=== PATIENT | male | born 1930 | race Two or more races ===

== ENCOUNTER 2018-08-20 14:47 | Emergency (ER) | payer OTHER, BC ==
[2018-08-20 15:14] VITALS: BP 102/58; PULSE 84; TEMP 97.8; BMI 19.9
[2018-08-20 16:34] LABS: PH,URINE 6.5 (5.0-8.0); URINE APPEARANCE CLEAR; URINE BILIRUBIN NEGATIVE (<2.0 mg/dL); URINE COLOR YELLOW; URINE GLUCOSE (UA) NEGATIVE (NEGATIVE); URINE KETONE NEGATIVE (NEGATIVE); URINE LEUK ESTERASE NEGATIVE (NEGATIVE); URINE NITRITE NEGATIVE (NEGATIVE); URINE PROTEIN NEGATIVE (NEGATIVE); URINE UROBILINOGEN 0.2 mg/dL (0.2-1.0)
--- NOTE | 2018-08-20 16:51 | PDOC ---
History of Present Illness - General Chief Complaint: Weakness Stated Complaint: FALL Time Seen by Provider: 08/20/18 15:45 History Source: Patient Exam Limitations: No Limitations - History of Present Illness Initial Comments: 08/20/18 16:47 88 yo male pmh of CAD, s/p CABG, HTN, HLD, anxiety, panic attacks and unspecified dementia presents to the ED from [address] [place] [address] after an unwitnessed fall 1 day ago with bilateral knee pain, bilateral lower leg weakness, left hip pain. Pt states while at his sons house yesterday, he fell after walking down the steps with 2 steps left, landed on his knees and believes he hit his head. Denies LOC, [place], N/V, changes in vision, changes in sensation or weakness on 1 side of his body. Pt states over the last 2 days it has become more difficult for him to ambulate due to pain in his knees and unsteady gait with dizziness. present who helps clarify pt hx, chronic complaints of dizziness, difficulty swallowing. Pts dementia is a limiting factor in the HPI, continues to state pt is at baseline and only new complaint is knee pain. Pt denies F/C, CP, SOB, back pain or changes in bowel or bladder habits Past History - Past Medical History Allergies/Adverse Reactions: Allergies Allergy/AdvReac Type Severity Reaction Status Date / Time No Known Allergies Allergy Verified 08/20/18 15:11 Home Medications: Ambulatory Orders Atorvastatin Ca [Lipitor] 40 mg PO DAILY 12/20/17 Clopidogrel Bisulfate [Plavix -] 75 mg PO DAILY 12/20/17 Finasteride [Proscar -] 5 mg PO DAILY 12/20/17 Tamsulosin HCl [Flomax] 0.4 mg PO DAILY 12/20/17 Alprazolam [Xanax] 0.25 mg PO DAILY 08/20/18 Alprazolam [Xanax] 0.5 mg PO DAILY 08/20/18 Buspirone HCl [Buspar -] 15 mg PO BID 08/20/18 Lubiprostone [Amitiza] 24 mcg PO DAILY 08/20/18 Mirtazapine 7.5 mg PO DAILY 08/20/18 Cardiac Disorders: Yes COPD: Yes Psychiatric Problems: Yes (anxiety) - Surgical History Cardiac Surgery: Yes (bipass 03/15) Lung Surgery: (lobectemy) - Suicide/Smoking/Psychosocial Hx Smoking History: Former smoker Have you smoked in the past 12 months: No Information on smoking cessation initiated: No Hx Alcohol Use: No Drug/Substance Use Hx: No Review of Systems - Review of Systems Constitutional: Yes: Weakness (bilateral lower limb). No: Chills, Fever HEENTM: No: Blurred Vision, Double Vision Respiratory: No: Cough, Shortness of Breath, Wheezing Cardiac (ROS): No: Chest Pain, Edema, Lightheadedness, Palpitations ABD/GI: No: Constipated, Diarrhea, Nausea, Vomiting : No: Burning, Dysuria, Frequency, Flank Pain Musculoskeletal: No: Back Pain, Neck Pain Integumentary: Yes: Bruising (bilateral knee) Neurological: Yes: Weakness (bilateral lower limb). No: Headache, Numbness, Tingling *Physical Exam - Vital Signs Last Vital Signs Temp Pulse Resp BP Pulse Ox 97.8 F 84 18 102/58 L 95 08/20/18 15:11 08/20/18 15:11 08/20/18 15:11 08/20/18 15:11 08/20/18 15:11 - Physical Exam General Appearance: Yes: Nourished, Appropriately Dressed. No: Apparent Distress HEENT: positive: EOMI, JUNIOR, Normal ENT Inspection, Normal Voice, Hearing Grossly Normal Neck: positive: Trachea midline, Supple, Tender midline. negative: Carotid bruit, Decreased range of motion, Tender lateral Respiratory/Chest: positive: Lungs Clear, Normal Breath Sounds. negative: Chest Tender, Respiratory Distress, Accessory Muscle Use, Rapid RR, Paradoxal Breathing, Crackles, Rales, Rhonchi, Stridor, Wheezing Cardiovascular: positive: Regular Rhythm, Regular Rate, S1, S2. negative: Edema , JVD, Murmur Vascular Pulses: Dorsalis-Pedis (R): 4+, Doralis-Pedis (L): 4+ Gastrointestinal/Abdominal: positive: Normal Bowel Sounds, Flat, Soft. negative : Pulsatile Mass, Distended, Guarding, Rebound, Tenderness Musculoskeletal: negative: CVA Tenderness, Decreased Range of Motion Extremity: positive: Normal Capillary Refill, Normal Inspection, Normal Range of Motion, Pelvis Stable, Other (pulses, sensation and strength normal bilateral lower limb, pt ambulating). negative: Coldness, Cyanosis, Delayed Capillary Refill, Calf Tenderness Integumentary: positive: Normal Color, Dry, Warm, Bruising (bilateral patellar without pain on palpation. ), Other (Normal ROM bilateral knee flexion and extension) Neurologic: positive: pelt salter II-XII NML intact, Fully Oriented, Alert, Normal Mood/ Affect, Normal Response, Motor Strength 5/5. negative: Facial Droop, Numbness, Sensory Deficit, Finger to Nose (normal), Confused (baseline mentation), Disoriented Moderate Sedation - Procedure Monitoring Vital Signs: Procedure Monitoring Vital Signs Temperature 97.8 F 08/20/18 15:11 Pulse Rate 84 08/20/18 15:11 Respiratory Rate 18 08/20/18 15:11 Blood Pressure 102/58 L 08/20/18 15:11 O2 Sat by Pulse Oximetry (%) 95 08/20/18 15:11 ED Treatment Course - LABORATORY CBC & Chemistry Diagram: 08/20/18 18:30 08/20/18 18:30 - ADDITIONAL ORDERS Additional order review: Laboratory Results 08/20/18 16:29 Urine Color Yellow Urine Appearance Clear Urine pH 6.5 Ur Specific [place] 1.013 Urine Protein Negative Urine Glucose (UA) Negative Urine Ketones Negative Urine Blood Negative Urine Nitrite Negative Urine Bilirubin Negative Urine Urobilinogen 0.2 Ur Leukocyte Esterase Negative - RADIOLOGY Radiology Studies Ordered: Category Date Time Status HEAD CT WITHOUT CONTRAST [CT] Stat CT Scan 08/20/18 16:03 Ordered CHEST X-RAY PORTABLE* [RAD] Stat Radiology 08/20/18 16:39 Ordered KNEE 3 POS-LEFT [RAD] Stat Radiology 08/20/18 16:03 Ordered KNEE 3 POS-RIGHT [RAD] Stat Radiology 08/20/18 16:03 Ordered Medical Decision Making - Medical Decision Making 08/20/18 18:48 88 yo male presents to the ED 1 day after unwitnessed fall, generalized bilateral lower limb weakness, left hip pain and likely hit head. Not on AC. Pt has non concerning neuro exam. NAD, non toxic appearing, AOX3, resting comfortably and ambulates without difficulty in the ED Vitals stable Pt has bilateral knee pain with erythema visible however pt able to ambulate, no tenderness with palpation and pulses/strength/sensation equal and normal bilateral lower ext Basic labs to r/o electrolyte/infections etiology of weakness EKG to r/o arrhythmia Head CT negative for acute intracranial path Pelvis CT negative for fracture however shows osteoporosis and a possible prostatic mass vs bladder polyp. Printed report and told to follow up with PCP for further concerns/work up Bilateral knee x ray negative for acute pathology Labs WNL and non concerning. Trops negative. UA negative for infection EKS NSR without ST changes Pt and very adamant about leaving before it gets dark outside and state they will s/o ama if they have to wait or if it is determined pt needs to be admitted. Pt is at baseline mentation and able to perform ADLs just as well as he did prior to his fall according to both him and his Work up negative for acute cause of fall or significant injuries due to the fall Pt DC back to [facility] with PCP f/u and print outs of x rays/ct scans Pt and understand and agree with plan *DC/Admit/Observation/Transfer Diagnosis at time of Disposition: Fall, Bilateral knee pain - Discharge Dispostion Disposition: INTERMEDIATE FACILITY Condition at time of disposition: Stable Decision to Admit order: No - Referrals Referrals: Cathy Rodríguez MD [Primary Care Provider] - - Patient Instructions Printed Discharge Instructions: DI for Knee Pain, DI for Dizziness-Nonvertigo Additional Instructions: Please see your primary doctor within the next 24 hours. Return to the ER for new or concerning symptoms including but not limited to: chest pain, shortness of breath, headaches, changes in vision or speech, weakness or changes in sensation on 1 side of your body, high fevers or inability to eat or drink. Continue taking your home dosed medications as prescribed. Thank you - Post Discharge Activity
--- NOTE | 2018-08-20 17:44 | PDOC ---
Attending Attestation - HPI HPI: 08/20/18 17:49 The patient is an 88-year-old male with a past medical history significant for HTN, HLD, CAD s/p CABG, left lower lobe lobectomy, panic attacks, anxiety, and undiagnosed dementia presents to the emergency department from [address] [place] [address] assisted living with bilateral lower leg weakness. The patient reports he suffered an unwitnessed fall yesterday, reports he sustained an injury to his knees and reports hitting his head. The patient reports [facility] The patient otherwise denies other issues or pain. The patient reports he is able to ambulate with difficulty. Allergies: NKDA PCP: Dr. Pratt ([phone]) CT surgeon is Dr. Christian Muñiz ([phone]) - Physicial Exam PE: 08/20/18 18:02 GENERAL: Awake, alert, and fully oriented, in no acute distress HEAD: No signs of trauma EYES: PERRLA, EOMI, sclera anicteric, conjunctiva clear ENT: Auricles normal inspection, hearing grossly normal, nares patent. Moist mucosa NECK: Normal ROM, supple, no JVD, or masses LUNGS: Breath sounds equal, clear to auscultation bilaterally. No wheezes, and no crackles HEART: Regular rate and rhythm, normal S1 and S2, no murmurs, rubs or gallops ABDOMEN: Soft, nontender. No guarding, no rebound. No masses EXTREMITIES: +Mild bilateral anterior knee tenderness to palpation. Stable. Mild hip tenderness to palpation with full range of motion. No obvious deformity. no edema. No clubbing or cyanosis. No cords, erythema. NEUROLOGICAL: Cranial nerves II through XII grossly intact. Normal speech. SKIN: Warm, Dry, normal turgor, no rashes or lesions noted. - Medical Decision Making 08/20/18 17:49 Documentation prepared by Madalyn Rodriguez, acting as medical attendant for Moises Franco MD. <Madalyn Rodriguez - Last Filed: 08/20/18 18:02> - Resident Resident Name: Adama Braun - ED Attending Attestation I have performed the following: I have examined & evaluated the patient, The case was reviewed & discussed with the resident, I agree w/resident's findings & plan, Exceptions are as noted - Medical Decision Making 08/20/18 17:44 A portion of this note was documented by scribe services under my direction. I have reviewed the details of the note, within reason, and agree with the documentation with the following case summary and management plan written by me. Patient treated in the ED. Nursing notes are reviewed and incorporated into the medical decision-making. Vital signs reviewed. Peripheral IV access obtained by the nurse, laboratory studies are drawn and sent, reviewed and interpreted by myself. Vital Signs Temp Pulse Resp BP Pulse Ox 97.8 F 84 18 102/58 L 95 08/20/18 15:11 08/20/18 15:11 08/20/18 15:11 08/20/18 15:11 08/20/18 15:11 88 year old male with past medical history of hypertension, coronary disease status post CABG, left lower lobe lobectomy presents with left hip and bilateral knee pain. Yesterday, the patient mechanical fall and fell on his knees and hit his head. Denies loss of conscious. Patient was able to get up with assistance at the [facility] facility but did not go to the hospital yesterday. Patient started to complain of bilateral knee and left hip pain today. Came to the ER. We'll need to obtain x-rays of the knees and pelvis of the hip and CAT scan the head. If the labs and the workup is unremarkable and the patient can have a, the patient can be discharged home with Tylenol. This would have been a mechanical fall. 08/20/18 18:41 Metallic foreign body posterior medial soft tissues left knee. No signs of acute process. 08/20/18 18:42 [facility], Dr. Hidalgo for further management and disposition. <Moises Franco - Last Filed: 08/20/18 18:42>
[2018-08-20 18:50] LABS: BASO % 0.6 % (0-2.0); EOS % 1.4 % (0-4.5); HEMATOCRIT 41.4 % (35.4-49); HEMOGLOBIN 14.5 GM/dL (11.7-16.9); LYMPH % 15.3 % (8-40); MCH 34.4 pg (25.7-33.7); MCHC 35.1 g/dl (32.0-35.9); MEAN CELL VOLUME 98.1 fl (80-96); MEAN PLT VOLUME 8.5 fl (7.5-11.1); MONO % 7.9 % (3.8-10.2); NEUT % 74.8 % (42.8-82.8); PLATELET COUNT 181 K/MM3 (134-434); RBC 4.22 M/mm3 (4.00-5.60); WHITE BLOOD COUNT 6.4 K/mm3 (4.0-10.0)
--- NOTE | 2018-08-20 19:05 | PDOC ---
*Physical Exam - Vital Signs Last Vital Signs Temp Pulse Resp BP Pulse Ox 97.8 F 84 18 102/58 L 95 08/20/18 15:11 08/20/18 15:11 08/20/18 15:11 08/20/18 15:11 08/20/18 15:11 ED Treatment Course - LABORATORY CBC & Chemistry Diagram: 08/20/18 18:30 08/20/18 18:30 - ADDITIONAL ORDERS Additional order review: Laboratory Results 08/20/18 16:29 Urine Color Yellow Urine Appearance Clear Urine pH 6.5 Ur Specific [place] 1.013 Urine Protein Negative Urine Glucose (UA) Negative Urine Ketones Negative Urine Blood Negative Urine Nitrite Negative Urine Bilirubin Negative Urine Urobilinogen 0.2 Ur Leukocyte Esterase Negative 08/20/18 18:30 RBC 4.22 MCV 98.1 H MCHC 35.1 RDW 12.0 MPV 8.5 Neutrophils % 74.8 Lymphocytes % 15.3 D Monocytes % 7.9 Eosinophils % 1.4 Basophils % 0.6 *DC/Admit/Observation/Transfer - Referrals Referrals: Cathy Rodríguez MD [Primary Care Provider] - - Patient Instructions - Post Discharge Activity
[2018-08-20 19:14] LABS: ALBUMIN 3.7 g/dl (3.4-5.0); ALK PHOS 87 U/L (45-117); ANION GAP 7 MMOL/L (8-16); BILIRUBIN,TOTAL 0.4 mg/dL (0.2-1); BLOOD UREA NITROGEN 15 mg/dL (7-18); CALCIUM 9.3 mg/dL (8.5-10.1); CHLORIDE 104 mmol/L (98-107); CO2 29 mmol/L (21-32); GLUCOSE,RANDOM 96 mg/dL (74-106); POTASSIUM 4.6 mmol/L (3.5-5.1); SGOT/AST 20 U/L (15-37); SGPT/ALT 29 U/L (13-61); SODIUM 140 mmol/L (136-145)
[2018-08-20 19:17] LABS: INR 1.09 (0.83-1.09); PROTHROMBIN TIME (PATIENT) 12.9 SEC (9.7-13.0)
[2018-08-20 19:20] LABS: ACTIVATED PTT 30.3 SECONDS (25.2-36.5)
--- NOTE | 2018-08-21 23:51 | EKG ---
Test Reason : Blood Pressure : / mmHG Vent. Rate : 080 BPM Atrial Rate : 080 BPM P-R Int : 158 ms QRS Dur : 118 ms QT Int : 388 ms P-R-T Axes : 070 058 050 degrees QTc Int : 447 ms NORMAL SINUS RHYTHM POSSIBLE LEFT ATRIAL ENLARGEMENT RIGHT BUNDLE BRANCH BLOCK ABNORMAL ECG WHEN COMPARED WITH ECG OF 20-DEC-2017 07:06, NO SIGNIFICANT CHANGE WAS FOUND Confirmed by NATHAN MORTON MD ([id number]) on 08/21/2018 11:50:58 PM Referred By: Confirmed By:NATHAN MORTON MD
== END 2018-08-20 20:00 ==
LOC: JER 14:47
DX: M25.561 Pain in right knee (principal); M25.562 Pain in left knee; R10.2 Pelvic and perineal pain; R26.89 Other abnormalities of gait and mobility; W10.8XXA Fall (on) (from) other stairs and steps, initial encounter; Y93.89 Activity, other specified; Y92.098 Other place in other non-institutional residence as the place of occurrence of the external cause; Y99.8 Other external cause status; I25.10 Atherosclerotic heart disease of native coronary artery without angina pectoris; I10 Essential (primary) hypertension; Z95.1 Presence of aortocoronary bypass graft; E78.5 Hyperlipidemia, unspecified; F41.9 Anxiety disorder, unspecified; F41.0 Panic disorder [episodic paroxysmal anxiety]; F03.90 Unspecified dementia, unspecified severity, without behavioral disturbance, psychotic disturbance, mood disturbance, and anxiety; Z90.2 Acquired absence of lung [part of]
CPT/HCPCS: 36415; 70450-TC; 71045-TC-FY; 72192-TC; 73562-TC-LT-FY; 73562-TC-RT-FY; 80053; 81003; 82550; 84484; 85025; 85610; 85730; 93005; 93010; 99282-25